=== PATIENT | male | born 1995 | race Caucasian/White ===

== ENCOUNTER 2020-05-05 18:16 | Emergency (ER) | payer OTHER, SELFPAY ==
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
[2020-05-05 18:25] VITALS: BP 147/85; PULSE 117; RESP 24; TEMP 36.6; O2SAT 100
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
== END 2020-05-05 19:14 | disposition home or self-care (01) ==
PROVIDERS: Emergency Provider Nurse Practitioner
DX: L03.113 Cellulitis of right upper limb (principal); J45.909 Unspecified asthma, uncomplicated; F17.210 Nicotine dependence, cigarettes, uncomplicated
CPT/HCPCS: 10160; 73130; 87070; 87147; 87186; 87205; 99203; G0463

== ENCOUNTER 2020-09-08 14:14 | Emergency (ER) | payer OTHER, SELFPAY ==
[2020-09-08 14:30] VITALS: BP 154/89; PULSE 99; RESP 18; TEMP 36.8; O2SAT 100
--- NOTE | 2020-09-08 14:46 | ED.MALEGU ---
HPI - Male Genitourinary General Chief complaint: Urogenital-Male Stated complaint: STD Time Seen by Provider: 09/08/20 14:37 Source: patient and RN notes reviewed Mode of arrival: ambulatory Limitations: no limitations History of Present Illness HPI Narrative: Patient presents today complaining of a 1+ week history of yellow penile discharge and dysuria. Denies any additional symptoms to include hematuria, penile pain, scrotal or testicle pain, any open sores. Patient has had 1 female partner recently and states she is now in [place] [facility]. She has not notified him that she is currently positive for any sexually transmitted infections. MD Complaint: penile discharge Related Data Allergies Allergy/AdvReac Type Severity Reaction Status Date / Time No Known Allergies Allergy Verified 09/08/20 14:25 Review of Systems Review of Systems: Narrative: CONSTITUTIONAL: Denies body aches, fever, chills, or sweats. EYES: Denies visual changes, redness, or discharge. ENT: Denies rhinorrhea, congestion, sore throat, or otalgia. CARDIOVASCULAR: Denies chest pain, palpitations, or edema. RESPIRATORY: Denies cough or dyspnea. GASTROINTESTINAL: Denies abdominal pain, nausea, vomiting, or diarrhea. GENITOURINARY: Denies hematuria. + Penile discharge, dysuria SKIN: Denies rash, itching, or wounds. MUSCULOSKELETAL: Denies back pain, joint pain, or myalgia. NEUROLOGIC: Denies headache, numbness, tingling, or weakness. PSYCH: Denies depression or anxiety. [facility] Past Medical History Medical History Anxiety Asthma Depression Seizures Surgical History Surgical History No significant past surgical history Family History Family History Other No significant family history Social History Social History (Updated 05/05/20 @ 18:37 by PAPA Omalley) Smoking status: Current every day smoker Tobacco type: cigarettes Alcohol intake: current Substance use: never Gender identity (if verbalized by the patient): Male Comments At time of signature, I have reviewed and agree with nursing past medical, surgical, social and family history unless otherwise noted. Please see nursing chart for further information. There is no relevant family history pertinent to the presenting complaint Exam Narrative: Exam Narrative: GENERAL: Well-appearing, well-nourished, and in no acute distress. HEAD: Normocephalic, atraumatic. EYES: EOMI. No redness or drainage. ENT: Mucous membranes pink and moist. NECK: Normal AROM. CHEST: No respiratory distress. : Scant clear urethral discharge noted. Testicles and scrotum nontender. Penis nontender. No edema or erythema. No open wounds or sores. Chaperoned by Cindy Cavazos RN. MUSCULOSKELETAL: No bony tenderness. EXTREMITIES: Normal range of motion. No edema. SKIN: Warm, dry, no rash. Capillary refill normal. Normal skin turgor. NEURO: No focal deficits. Alert and oriented x3. Gait steady. PSYCH: Normal affect. No signs of depression or anxiety. Course Vital Signs Vital signs: Vital Signs Temperature 98.2 F 09/08/20 14:30 Pulse Rate 99 09/08/20 14:30 Respiratory Rate 18 09/08/20 14:30 Blood Pressure 154/89 H 09/08/20 14:30 Pulse Oximetry 100 09/08/20 14:30 Temperature 98.2 F 09/08/20 14:30 Pulse Rate 99 09/08/20 14:30 Respiratory Rate 18 09/08/20 14:30 Blood Pressure 154/89 H 09/08/20 14:30 Pulse Oximetry 100 09/08/20 14:30 Reviewed. Pt has been instructed to follow up with his PCP regarding his elevated blood pressure today. MDM - Male Genitourinary Differential Diagnosis Differential diagnosis: Likely urinary tract infection, urethritis, prostatitis and other (Gonorrhea, chlamydia, trichomonas) Lab Data Labs: Urine Characteristics Cloudy
[2020-09-08] MEDS: AZITHROMYCIN 250 MG TABLET 1000 MG PO (14:54)
[2020-09-08] MEDS: cefTRIAXone 250 MG VIAL 500 MG IM (14:55)
== END 2020-09-08 15:15 | disposition home or self-care (01) ==
PROVIDERS: Emergency Provider Nurse Practitioner
DX: Z20.2 Contact with and (suspected) exposure to infections with a predominantly sexual mode of transmission (principal); F17.219 Nicotine dependence, cigarettes, with unspecified nicotine-induced disorders; J45.909 Unspecified asthma, uncomplicated
CPT/HCPCS: 87491; 87591; 87661; 96372; 99213; A9270; G0463; J0696

== ENCOUNTER 2023-06-19 16:26 | Emergency (ER) | payer OTHER, SELFPAY ==
[2023-06-19 16:32] VITALS: BP 137/81; PULSE 127; RESP 18; TEMP 37.2; O2SAT 97
--- NOTE | 2023-06-19 17:50 | ED.GENADULT ---
HPI - General Adult General Chief complaint: Upper Respiratory Infection Stated complaint: Cough Blood Source: patient Mode of arrival: ambulatory Limitations: no limitations History of Present Illness HPI narrative: Patient presents for evaluation of hemoptysis. He indicates he has a history of substance abuse, previously using fentanyl and methamphetamine. He stopped using fentanyl about 3 years ago when he was incarcerated. He was released from group home in January of 2023. He has dabbled with methamphetamine since that time but states he has not been using fentanyl. He indicates last night around 2100 a friend picked him up in a vehicle. The smokes some marijuana and he does not remember anything thereafter. He indicates at 1:00 a.m. in the morning he woke in the vehicle being dropped off back at his residence. He was informed by his friend that they administered 4 doses of Narcan to the patient for being ?unresponsive?. Patient noted some hemoptysis but thought it may have been from chest compressions. He went to bed and woke up from sleep at 3:00 p.m.. He continued to have hemoptysis at that time. It prompted him to come in for further evaluation. He denies any known injuries. He reports some mild shortness of breath but attributes that to asthma and working outdoors in the cold. He denies any other symptoms at the present time. Related Data Home Medications Medication Instructions Recorded Confirmed No Home Medications 06/19/23 06/19/23 Allergies Allergy/AdvReac Type Severity Reaction Status Date / Time No Known Allergies Allergy Verified 06/19/23 16:57 Review of Systems Review of Systems: CONSTITUTIONAL: Denies fever, chills, or sweats. EYES: Denies visual changes, redness, or discharge. ENT: Denies rhinorrhea, congestion, sore throat, or otalgia. CARDIOVASCULAR: Denies chest pain, palpitations, or edema. RESPIRATORY: Reports hemoptysis and mild shortness of breath. GASTROINTESTINAL: Denies abdominal pain, nausea, vomiting, or diarrhea. GENITOURINARY: Denies dysuria or hematuria. SKIN: Denies rash or itching. MUSCULOSKELETAL: Denies back pain, joint pain, or myalgia. NEUROLOGIC: Denies headache, numbness, dizziness, or weakness. PSYCHIATRIC: Denies anxiety or depression. [facility] Past Medical History Medical History Anxiety Asthma Depression Seizures Surgical History Surgical History No significant past surgical history Family History Family History Other No significant family history Social History Social History Smoking status: Current every day smoker Tobacco type: cigarettes Alcohol intake: current Alcohol use details: Social Substance use: current Substance use type: marijuana, amphetamines and opiates Gender identity (if verbalized by the patient): Male Exam Narrative: GENERAL: Disheveled-appearing HEAD: Normocephalic, atraumatic. EYES: PERRLA and EOMI. ENT: Nares clear, no rhinorrhea or epistaxis. Mucous membranes moist. Oropharynx without tonsillar hypertrophy exudate or other lesions. Bilateral TMs pearly lynne nonbulging NECK: Supple. No adenopathy or masses. No carotid bruits or JVD CHEST: Clear to auscultation. No respiratory distress. No wheezes rales or rhonchi. Holding an emesis bag that has bright red blood in it HEART: Rate is 115. No murmur heard. Normal peripheral pulses. ABDOMEN: Soft, nontender, nondistended, normal active bowel sounds. EXTREMITIES: Normal range of motion. No edema. SKIN: Warm, dry, no rash. NEURO: No focal deficits. Alert and oriented x3. PSYCH: Normal mood and affect. Course Course Emergency Course: This is a 28-year-old male who presented for evaluation of hemoptysis of unknow
== END 2023-06-19 17:52 | disposition short-term general hospital (02) ==
PROVIDERS: Emergency Provider Nurse Practitioner
DX: R04.2 Hemoptysis (principal); F12.90 Cannabis use, unspecified, uncomplicated; F17.210 Nicotine dependence, cigarettes, uncomplicated; J45.909 Unspecified asthma, uncomplicated
CPT/HCPCS: 99212; G0463

== ENCOUNTER 2023-08-21 15:59 | Emergency (ER) | payer OTHER, SELFPAY ==
--- NOTE | 2023-08-21 18:15 | PC.NURSE ---
1620 prior to triage pt informs staff he does not want to have to wait to be seen. observed in [place] leaving at this time, ambulates quickly without difficulty, slight limp.
== END 2023-08-21 16:20 | disposition left against medical advice (07) ==
LOC: EXPBETH 16:03
PROVIDERS: Emergency Provider Registered Nurse
DX: Z53.21 Procedure and treatment not carried out due to patient leaving prior to being seen by health care provider (principal)
CPT/HCPCS: 99199